=== PATIENT | male | born 1995 | race Caucasian/White ===

== ENCOUNTER 2017-12-03 18:55 | Emergency (ER) | payer SELFPAY ==
[2017-12-03 19:00] VITALS: BP 129/68; BMI 25.1
--- NOTE | 2017-12-03 21:12 | DR.GENAD ---
HPI - PCP Primary Care Physician: NFD - Complaint/Symptoms Chief Complaint:: PT C/O FEVER AND THROWING UP - Source History Provided: Patient - Mode of Arrival Mode of Arrival: Ambulatory - Timing Onset of Chief Complaint: 11/30/17 PMH - PMH Past Medical History: No Past Surgical History: No - Family History History of Family Medical Conditions: No - Social History Type of Tobacco Use: Cigarettes Does any household member use tobacco: Yes Alcohol Use: None Do you use any recreational Drugs:: No Lives With: Family Lives Where: Home - infectious screening In the last 2 months have you had wt loss of >10#?: NO Have you had fever, night sweats or hemotysis?: No Have you traveled outside the country in the last 6 months?: No Isolation: Standard PE - Vital Signs Vitals: Temperature 99.9 F Pulse Rate 85 Respiratory Rate 18 Blood Pressure 129/68 O2 Sat by Pulse Oximetry 99 ROR - Labs Reviewed Laboratory: Influenza Type A (PCR) Positive (NEGATIVE) A 12/03/17 19:36 Influenza Type B (PCR) Negative (NEGATIVE) 12/03/17 19:36 Streptococcus Screen Negative (NEGATIVE) 12/03/17 20:12 - Discharge Plan Condition: Stable Prescriptions: Acetaminophen with Codeine [Tylenol/Codeine #3 300-30 mg] 1 tab PO Q6H PRN #15 tab PRN Reason: Pain Amoxicillin [Amoxil 875 mg] 875 mg PO Q12H #20 tab Oseltamivir Phosphate [Tamiflu] 75 mg PO BID #10 cap - Follow ups/Referrals Follow ups/Referrals: NFD,None [Primary Care Provider] - 3 days - Instructions Instructions: Influenza, Adult, [id number], Acute Bronchitis, [id number] Additional Instructions: return to ed if worse.
== END 2017-12-03 21:28 | disposition home or self-care (01) ==
LOC: ER 19:06
DX: J11.1 Influenza due to unidentified influenza virus with other respiratory manifestations (principal); J20.9 Acute bronchitis, unspecified
CPT/HCPCS: 87070; 87502; 87880; 99282